=== PATIENT | female | born 1985 | race Caucasian/White ===

== ENCOUNTER 2019-06-20 09:00 | Emergency (ER) | payer OTHER | END 2019-06-20 11:40 | disposition home or self-care (01) | LOC: MED 09:00 | DX: S63.502A Unspecified sprain of left wrist, initial encounter (principal); W22.8XXA Striking against or struck by other objects, initial encounter; Y93.89 Activity, other specified; Y92.89 Other specified places as the place of occurrence of the external cause; Y99.8 Other external cause status; Z90.49 Acquired absence of other specified parts of digestive tract | CPT/HCPCS: 73110; 99283 ==